=== PATIENT | female | born 1950 | race African-American/Black ===

== ENCOUNTER 2017-03-21 19:22 | Inpatient (IN) | payer BC ==
--- NOTE | ~2017-03-21 | HP ---
History And Physical [place] [id number] [place]. [address] NAME: NICOLETTE BURNS : 48 STATUS : ADM IN [facility]#: [id number] AGE: 66 ADM/REG DATE : 03/22/17 MR#: [id number] REPORT SERV DATE: 03/22/17 DICTATED BY: IRINA CHOW DATE: 03/22/17 REPORT STATUS : Draft TRANSCRIBED BY: MODL DATE: 03/22/17 DATE OF ADMISSION: 03/22/2017 POINT OF ENTRY: [facility] Emergency Department. PRIMARY [employer] OPERATOR: Dr. Arriaga. CHIEF COMPLAINT: Leukocytosis and history of hidradenitis suppurativa. HISTORY OF PRESENT ILLNESS: Ms. Burns is a 66-year-old female with history of hidradenitis suppurativa, zbx-iylnyah-lvcnjyttf diabetes mellitus type 2, hypertension, hyperlipidemia, who presents to the emergency department today with reports of continued purulent drainage from her hidradenitis suppurativa with elevated white count. The patient states that she has been on a combination of clindamycin and rifampin since the end of January to treat her hidradenitis in the setting of an elevated white count of approximately 19,000. In anticipation of plans for outpatient incision and debridement by Dr. Arriaga, he added on Bactrim Double Strength b.i.d. about two weeks ago. She has been taking all three antibiotics for the past two weeks. She was seen in clinic by Dr. Pierce on the , the labs were drawn, and she had a white count of 20,000, and she was subsequently referred to the emergency department for further evaluation. Of note, the patient denies any fevers, night sweats, chills. She does continue to report a very large amount of purulent drainage from her hidradenitis located primarily in the inguinal and perineal region. Initial evaluation in the emergency department was notable for a heart rate of 103. She is afebrile. White count here is 19,100, sugars 356. She was placed on IV vancomycin and admitted to the Hospitalist Service. REVIEW OF SYSTEMS: Comprehensive review of systems otherwise negative unless listed in history of present illness. PREVIOUS MEDICAL HISTORY: 1. Owk-iymvruv-ysgediiba diabetes mellitus type 2. Hemoglobin A1c of 9.6. 2. Hidradenitis suppurativa. 3. Hypertension. 4. Hyperlipidemia. 5. Diabetic neuropathy. 6. History of right septic knee arthritis. 7. History of left third toe osteomyelitis, status post amputation. SURGICAL HISTORY: 1. Abdominal hysterectomy. 2. Right carpal tunnel. 3. Appendectomy. History And Physical [address] [address] NAME: NICOLETTE BURNS : [birth year] STATUS : ADM IN [facility]#: [id number] AGE: 66 ADM/REG DATE : 03/22/17 MR#: [id number] REPORT SERV DATE: 03/22/17 DICTATED BY: IRINA CHOW DATE: 03/22/17 REPORT STATUS : Draft TRANSCRIBED BY: HERMAN DATE: 03/22/17 4. Tonsillectomy. 5. Tubal ligation. 6. Left third toe amputation. ALLERGIES: SHELLFISH. HOME MEDICATIONS: 1. Amlodipine and benazepril one tab daily. 2. Clindamycin 300 mg t.i.d. 3. Gabapentin 100 mg daily p.r.n. 4. Glipizide 5 mg daily. 5. Naproxen 440 mg daily. 6. Rifampin 300 mg t.i.d. 7. Janumet 50-1000 one tab daily. 8. Bactrim DS one tab b.i.d. SOCIAL HISTORY: Denies any tobacco, alcohol, or illicits. FAMILY HISTORY: Mother with breast cancer. Father with history of stroke. Siblings with diabetes. LABS AND IMAGIN. White count 19.1, hemoglobin is 8.5, hematocrit is 27.7, and platelet count is 489. 2. Sodium is 133, potassium 4.7, chloride 100, carbon dioxide 25, BUN 19, creatinine 0.88, glucose is 356, calcium is 9.2, protein is 8.5, albumin 2.4, bilirubin is 0.3, ALT is 18, AST 12, and alkaline phosphatase is 110. 3. Urinalysis is pending at the time of dictation. 4. Chest x-ray, pending at the time of dictation. PHYSICAL EXAMINATION: VITAL SIGNS: Temperature is 98.2 degrees Fahrenheit, pulse is 103, respirations 18, saturating 98% on room air, and blood pressure 145/66. On recheck, blood pressure now 153/55, pulse of 90. GENERAL: The patient is awake, alert, in no acute distress, resting comfortably in bed. She is a well-developed, well-nourished, elderly female. Daughter is at bedside. HEENT: Atraumatic and normocephalic. Moist mucous membranes. Pupils equal, round, reactive to light and accommodation. Extraocular eye movements intact. No scleral icterus. NECK: No jugular venous distention. No carotid bruits. CARDIAC: Regular rate and rhythm. No murmurs or gallops. Normal S1, S2. LUNGS: Clear to auscultation bilaterally. No wheezes, rhonchi, or crackles. ABDOMEN: Soft, nontender, nondistended. Good bowel sounds. No rebound, guarding, or rigidity. : The patient has areas of hidradenitis suppurativa primarily in the area of the mons pubis as well as bilateral inguinal region with evidence of purulent drainage on close and direct inspection of inguinal and perineum. I do not appreciate any areas of obvious necrosis or gangrene. There is no palpable fluctuance or fluid collections or subcutaneous gas. History And Physical [address] [address] NAME: NICOLETTE BURNS : [birth year] STATUS : ADM IN [facility]#: [id number] AGE: 66 ADM/REG DATE : 03/22/17 MR#: [id number] REPORT SERV DATE: 03/22/17 DICTATED BY: IRINA CHOW DATE: 03/22/17 REPORT STATUS : Draft TRANSCRIBED BY: HERMAN DATE: 03/22/17 SKIN: Warm and dry except for noted above. PSYCH: Affect appropriate. NEURO: Alert and oriented x3. Cranial nerves 2 through 12 grossly intact. Speech is normal. Gait not assessed. ASSESSMENT: Ms. Burns is a 66-year-old female who presents with persistent leukocytosis despite aggressive triple antibiotic therapy for her hidradenitis suppurativa. PROBLEM LIST: 1. Hidradenitis suppurativa. 2. Persistent leukocytosis. 3. Microcytic anemia. 4. Uncontrolled tyl-syjnrtv-bveyuigru diabetes type 2 with hyperglycemia. 5. Hypertension. PLAN: 1. Hidradenitis suppurativa with persistent leukocytosis. We will place the patient on IV Merrem and vancomycin as she has previous culture results dating back about five or seven years with a history of ESBL E. coli as well as Enterococcus faecalis. My suspicion for necrotizing soft tissue infection such as Michaela gangrene is low at this time. However, we will check a lactic acid level and a CPK. We will also empirically continue oral clindamycin at least overnight. Of note, her leukocytosis has been persistent for now over the past two months despite antibiotic therapy and she shows no signs of toxicity and vital signs are stable. We will consult Infectious Diseases as well as Dr. Curtis of General Surgery, who has known the patient in the past to assist with management of the patient's hidradenitis suppurativa. We will leave to the specialists and assuming primary attending in the morning whether or not Dermatology need to be involved as an inpatient. 2. Persistent leukocytosis likely secondary to hidradenitis suppurativa with persistent leukocytosis given history, but we will check urinalysis, chest x-ray, as well as a set of blood cultures, also obtaining wound cultures. 3. Uncontrolled eub-gfkvcom-ndwfisqul diabetes mellitus 2 with hyperglycemia. The patient admittedly is noncompliant with a lot of her medications secondary to financial reasons. We will give the patient some IV insulin here as well as IV fluids to get her sugar down. Place on level 3 insulin sliding scale and consult Diabetes Education for assistance. 4. Microcytic anemia. Checking iron studies as well as an occult stool. 5. DVT prophylaxis. Lovenox subcu. CODE STATUS: The patient wished to be full code. LISBETH/HERMAN Irina Chow MD History And Physical [address] [address] NAME: NICOLETTE BURNS : [birth year] STATUS : ADM IN [facility]#: [id number] AGE: 66 ADM/REG DATE : 03/22/17 MR#: [id number] REPORT SERV DATE: 03/22/17 DICTATED BY: IRINA CHOW DATE: 03/22/17 REPORT STATUS : Draft TRANSCRIBED BY: HERMAN DATE: 03/22/17 / [id number] CC: MD Emily Santos II
--- NOTE | ~2017-03-21 | DS ---
Discharge Summary [facility] [address] [place]. [address] NAME: NICOLETTE LOPEZ : 48 STATUS : DIS IN PAT#: [id number] AGE: 66 ADM/REG DATE : 03/22/17 MR#: [id number] REPORT SERV DATE: 03/24/17 DICTATED BY: IRINA JOY II DATE: 03/23/17 REPORT STATUS : Draft TRANSCRIBED BY: MODL DATE: 03/23/17 ADMISSION DATE: 03/22/2017 DISCHARGE DATE: 03/23/2017 DISCHARGE DIAGNOSES: 1. Chronic hidradenitis suppurativa. 2. Chronic leukocytosis. 3. Chronic microcytic anemia. 4. Uncontrolled uxp-twhprcz-jjdhhpksm diabetes mellitus type 2 with hyperglycemia. 5. Hypertension. CONSULTS: Dr. Pettit with Infectious Disease and Dr. Curtis with Surgery. BRIEF HISTORY OF PRESENT ILLNESS: The patient is a 66-year-old female with the above history, who presented to [facility] due to leukocytosis in the setting of chronic hidradenitis suppurativa with active drainage. For detailed history and physical examination, please see Dr. Mejia's note from 03/22/2017. HOSPITAL COURSE: On admission, the patient was noted to have some purulent drainage from her groin, where she has had chronic hidradenitis suppurativa. There was no erythema or evidence of acute cellulitis. She was initially placed on vancomycin and meropenem on admission given her white blood cell count of 19. She does have evidence for chronic leukocytosis dating back one or two years in our system. Dr. Pettit and Dr. Curtis were consulted and Dr. Curtis did not think there was any acute need for surgical intervention or drainage. Dr. Pettit was discontinuing her IV antibiotics as he did not think she had an acute infection and her leukocytosis was chronic and her hidradenitis suppurativa was likely managed from a microbial standpoint sufficiently with her current oral antibiotic regimen. He recommended considering a possible disease modifying drug in the future, however, clearly deferring to her aerodynamicist whom she will follow up with this month on the . At this point, her disease does not appear to be acutely inflamed and will be discharged with her home regimen at this point. In regard to her uncontrolled diabetes, her blood sugar has been in the 200s and she noted it has been in the 100s to 200s at home for a while. At this point, she may benefit from a long-acting insulin and has been started on Levemir. Her oral home regimen was discontinued on admission, and she was placed on sliding scale insulin. She was still in the upper 100s to 200s on a sliding scale and was started on 20 units of Levemir. This morning, her blood sugar was 110. Given I will be continuing her Janumet, we will lower her Levemir to 12 units until she establishes compliance with it and is able to monitor her blood sugar adequately. We will set her up with home health and follow up with her PCP, Dr. Pierce in one to two weeks. DISCHARGE MEDICATIONS: 1. Lotrel 5/40 mg p.o. daily. 2. Cleocin 300 mg p.o. t.i.d. 3. Levemir 12 units subcutaneously q.h.s. Discharge Summary [address] [address] NAME: NICOLETTE LOPEZ : 48 STATUS : DIS IN PAT#: [id number] AGE: 66 ADM/REG DATE : 03/22/17 MR#: [id number] REPORT SERV DATE: 03/24/17 DICTATED BY: IRINA JOY II DATE: 03/23/17 REPORT STATUS : Draft TRANSCRIBED BY: HERMAN DATE: 03/23/17 4. Rifampin 300 mg p.o. t.i.d. 5. Naproxen p.r.n. 6. Bactrim one tablet p.o. b.i.d. 7. Janumet one tablet p.o. daily. 8. Neurontin 100 mg p.o. daily p.r.n. pain. DISCHARGE INSTRUCTIONS: The patient will follow up with Dr. Pierce in one to two weeks. She will also follow up with her aerodynamicist at the end of the month as scheduled. DICTATED BY: MD VERONICA Santos II/HERMAN Irina Joy II, MD / [id number] CC: MD VALENTINO Santos II, MICHALLE B
--- NOTE | ~2017-03-21 | CN ---
Consultation Report [facility] [address] [place]. [address] NAME: NICOLETTE LOPEZ : 48 STATUS : ADM IN PAT#: [id number] AGE: 66 ADM/REG DATE : 03/22/17 MR#: [id number] REPORT SERV DATE: 03/23/17 DICTATED BY: KORY PETTIT DATE: 03/23/17 REPORT STATUS : Draft TRANSCRIBED BY: MODL DATE: 03/23/17 INFECTIOUS DISEASE CONSULTATION DATE OF CONSULTATION: 03/23/2017 REASON FOR CONSULTATION: Hidradenitis suppurativa. 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 The patient has been followed by Dr. Arriaga of Dermatology for her hidradenitis. She tells me she has been on clindamycin and rifampin for a few months, and about 10 days ago, Bactrim was added to this regimen. On 03/20/2017, she had some lab work drawn and her white blood cell count returned at 20,000 and she was told to go to the emergency department because there was concern about sepsis. However, the patient has had a rather chronic leukocytosis for the past year on reviewing her labs from [facility]. Her white blood cell count has been in the 15,000 to 20,000 range. The patient denies any recent fevers, shaking chills, or severe night sweats. She does have persistent pain in area of her hidradenitis in her perineum, but this is not especially worse. She also has ongoing drainage issues, which are problematic, but again notes markedly changed. The patient was admitted and because of some distant culture results showing ESBL E coli, was started on vancomycin and meropenem. On admission, she was afebrile and has remained so. The patient tells me that her production officer has discussed other medications for the hidradenitis with her including possibly Humira and apparently also retinoic acid therapy, but she has been worried about side affects. PAST MEDICAL HISTORY: In addition to the above is notable for diabetes, hypertension, hyperlipidemia, abdominal hysterectomy, appendectomy, tonsillectomy, tubal ligation, and right carpal tunnel surgery. ALLERGIES: SHELLFISH. PRESENT OUTPATIENT MEDICATIONS: Include clindamycin 300 mg p.o. t.i.d., rifampin 300 mg p.o. t.i.d., Lotrel, Neurontin, Glucotrol, Aleve, Janumet, and Bactrim b.i.d. SOCIAL HISTORY: Nonsmoker, nondrinker. FAMILY HISTORY: Noncontributory. REVIEW OF SYSTEMS: Otherwise negative. No nausea, vomiting, or diarrhea with these antibiotics. PHYSICAL EXAMINATION: GENERAL: The patient is alert, pleasant, in no acute distress. VITAL SIGNS: She is afebrile. Blood pressure 136/61, pulse 76, and respiratory rate 14. Consultation Report [address] [place]. [address] NAME: NICOLETTE LOPEZ : 48 STATUS : ADM IN [facility]#: [id number] AGE: 66 ADM/REG DATE : 03/22/17 MR#: [id number] REPORT SERV DATE: 03/23/17 DICTATED BY: KORY PETTIT DATE: 03/23/17 REPORT STATUS : Draft TRANSCRIBED BY: HERMAN DATE: 03/23/17 HEAD AND NECK: Shows clear oral cavity. LUNGS: Clear to auscultation anteriorly. CARDIAC: Regular rate and rhythm without murmur, gallop, or rub. ABDOMEN: Soft, nontender. Examination of her perineum shows typical changes of chronic hidradenitis. There is no surrounding cellulitis. There are some areas with some drainage, but these are not marked. EXTREMITIES: Without significant edema. She has peripheral IV without phlebitis. LABORATORY STUDIES: White blood cell count on 03/21/2017 is 19.1, on 03/22/2017 is 15.3, hemoglobin 7.7 (she does have chronic anemia), platelets 429, normal differential. Creatinine is 0.62. Albumin 2.4. Liver function tests are normal. Her urinalysis on admission showed moderate leukocyte esterase, 50 white blood cells, but cultures growing mixed gram-positive and gram-negative organisms. Admission blood cultures are negative. IMPRESSION: I do not see strong evidence that the patient has severe flare of secondary infection complicating her chronic hidradenitis. The leukocytosis is chronic. She has no fevers, chills, sweats, or other signs or symptoms of severe infection. I do not think she has a true urinary tract infection. PLAN: 1. I will continue the oral antibiotic regimen that her production officer has her on with the clindamycin, rifampin, and Bactrim. 2. I have encouraged the patient to discuss further with her production officer for the possibility of taking a disease modifying medication, understanding that she needs to fully appreciate the potential side effects. However, I think this offers her a much better chance that getting some improvement in her chronic hidradenitis symptoms and certainly I think this is more likely to help her then more aggressive antibiotic therapy. The patient's main problem with her hidradenitis is pain which is quite bothersome for her, along with the episodic drainage. KRISTEN/MODTerri Kory Pettit M.D. / [id number] CC: MD VALENTINO Santos II, MICHALLE B
--- NOTE | ~2017-03-21 | CN ---
Consultation Report [address] [place]. [address] NAME: NICOLETTE LOPEZ : 48 STATUS : ADM IN PAT#: [id number] AGE: 66 ADM/REG DATE : 03/22/17 MR#: [id number] REPORT SERV DATE: 03/22/17 DICTATED BY: ORI PERKINS DATE: 03/22/17 REPORT STATUS : Draft TRANSCRIBED BY: MODL DATE: 03/22/17 SURGICAL CONSULTATION DATE OF CONSULTATION: PRIMARY DIRECTOR PROFESSIONAL SERVICES: Dr. Arriaga. REASON FOR CONSULTATION: Left perineal hidradenitis. HISTORY OF PRESENT ILLNESS: This pleasant 66-year-old female, presents with a history of chronic hidradenitis in the bilateral perineum. She has some purulent drainage in the left inner thigh without redness, swelling, or fluctuance. There is no bulla or crepitance or need for surgical drainage. She has diabetes mellitus type 2, hypertension, and hyperlipidemia. She had an elevated white blood cell count and has been on suppressive antibiotic therapy prior to her admission. I was asked to see the patient in consultation. She had a blood sugar of 356 upon presentation with a heart rate of 103. PAST MEDICAL HISTORY: 1. Left perineal hidradenitis suppurativa with systemic inflammatory response syndrome. 2. Uncontrolled diabetes mellitus type 2. 3. Hypertension. 4. Hyperlipidemia. 5. Diabetic neuropathy. PAST SURGICAL HISTORY: Hysterectomy, right carpal tunnel surgery, appendectomy and lower extremity amputation of the left third toe. ALLERGIES: SHELLFISH. MEDICATIONS: Please see hospital chart. SOCIAL HISTORY: The patient denies alcohol, tobacco, or illicit drug usage. FAMILY HISTORY: Positive for breast cancer, stroke, and diabetes. LABORATORY DATA: White blood cell count 19,100. PHYSICAL EXAMINATION: General: Well-developed female, in no apparent distress. NECK: Supple. No adenopathy. CARDIOVASCULAR: Regular rate and rhythm without murmur. RESPIRATORY: Clear to auscultation. ABDOMEN: Soft, nondistended, and nontender. EXTREMITIES: The patient has hidradenitis in bilateral perineum with purulent drainage into Consultation Report [address] [place]. [address] NAME: NICOLETTE LOPEZ : 48 STATUS : ADM IN PAT#: [id number] AGE: 66 ADM/REG DATE : 03/22/17 MR#: [id number] REPORT SERV DATE: 03/22/17 DICTATED BY: ORI PERKINS DATE: 03/22/17 REPORT STATUS : Draft TRANSCRIBED BY: HERMAN DATE: 03/22/17 left deep perineum without any palpable fluctuance, redness, bulla, or crepitance. ASSESSMENT: 1. Hidradenitis suppurativa, left perineum, with systemic inflammatory response syndrome. 2. Uncontrolled diabetes mellitus type 2. 3. Hypertension. 4. Hyperlipidemia. 5. Microcytic anemia. PLAN: I agree with therapy with consultation of Infectious Disease. There is no operative debridement needed at this time. I recommend continued medical therapy and follow up with Dermatology. SINDHU/HERMAN Ori Perkins M.D. / [id number] CC: MD VALENTINO Santos II, MICHALLE B
[~2017-03-21 19:22] MED LIST: ALEVE220 MG PO; DIABET2.5 PO; DIABETA5 PO; DSS PO; GLUCOPHAGE1000 MG PO; HYDROCHLOROT25 MG PO; INDERIDE PO; JANUMET1 TA1 PO; JANUVIA100 MG PO; K500 PO; LOTREL1 CA3 PO; LOTREL1 CA4 PO; MIRALAXPKT PO; NEUR300 PO; PEP20 PO; T PO; ZOCOR10 PO; ZOCOR20 PO; ZOCOR40 PO
[2017-03-21 20:03] LABS: BASOPHILS 0.3 %; BASOPHILS ABSOLUTE 0.05 10/3/uL (0.0-0.16); EOSINOPHILS 0.7 %; EOSINOPHILS ABSOLUTE 0.13 10/3/uL (0.0-0.53); ER CBC TAT 0 Hrs 07 Mins; HEMOGLOBIN 8.5 g/dL (12.0-16.0); IMMATURE GRANULOCYTES 0.5 %; IMMATURE GRANULOCYTES ABSOLUTE 0.09 10/3/uL (0.0-0.11); LYMPHOCYTES 14.7 %; LYMPHOCYTES ABSOLUTE 2.81 10/3/uL (0.67-4.30); MEAN PLATELET VOLUME 9.5 fL (9.2-13.0); MONOCYTES 3.3 %; MONOCYTES ABSOLUTE 0.63 10/3/uL (0.21-1.20); NEUTROPHILS 80.5 %; NEUTROPHILS ABSOLUTE 15.42 10/3/uL (2.02-8.40); PLATELET COUNT 489 10/3/uL (150-400); WHITE BLOOD CELLS 19.1 10/3/uL (4.5-10.5)
[2017-03-21 20:05] LABS: HEMATOCRIT 27.7 % (36.0-48.0); MANUAL DIFF NO %; MEAN CORPUS HGB CONC 30.7 g/dL (32.0-36.0); MEAN CORPUSCULAR HEMOGLOB 20.7 pg (26.0-34.0); MEAN CORPUSCULAR VOLUME 67.6 fL (80-100); RBC DISTRIBUTION WIDTH 22.7 % (12.0-16.0)
[2017-03-21 20:20] LABS: A/G RATIO 0.4 (0.7-1.9); ALBUMIN 2.4 G/DL (3.5-5.0); CALCIUM, SERUM 9.2 MG/DL (8.5-10.4); CHLORIDE, SERUM 100 MMOL/L (96-112); CO2 (CARBON DIOXIDE) 25 MMOL/L (24-34); CREATININE 0.88 MG/DL (0.55-1.02); GFR AFRICAN AMERICAN 79 ML/MIN (>=60); GFR NON AFRICAN AMERICAN 68 ML/MIN (>=60); GLOBULIN 6.1 G/DL (2.5-4.1); SGOT(AST) 12 U/L (5-40); SGPT(ALT) 18 U/L (5-65); SODIUM, SERUM 133 MMOL/L (135-148); TOTAL BILIRUBIN 0.3 MG/DL (0-1.2); TOTAL PROTEIN 8.5 G/DL (6.0-8.5)
[2017-03-21 20:22] LABS: ALKALINE PHOSPHATASE 110 U/L (45-117); BUN (BLOOD UREA NITROGEN) 19 MG/DL (6-23); GLUCOSE, SERUM 356 MG/DL (60-99); POTASSIUM, SERUM 4.7 MMOL/L (3.5-5.3)
[2017-03-21 20:24] LABS: HYPOCHROMIA 1+ (3-10/OIF) (0-2/OIF); PLATELET ESTIMATE SLT INC (ADEQUATE)
[2017-03-22] MEDS ORDERED: LOTREL1 CA3 PO (00:23)
[2017-03-22] MEDS ORDERED: GLUCOTROL5 PO (00:23)
[2017-03-22] MEDS ORDERED: RIFADIN 300 MG300 MG PO (00:24)
[2017-03-22] MEDS ORDERED: CLEOCIN300 MG PO (00:24)
[2017-03-22] MEDS ORDERED: ALEVE220 MG PO (00:25)
[2017-03-22] MEDS ORDERED: BACDS PO (00:26)
[2017-03-22] MEDS ORDERED: JANUMET1 TA1 PO (00:27)
[2017-03-22] MEDS ORDERED: NEUR100 PO (00:28)
[2017-03-22 00:52] LABS: ASCORBIC ACID (UR NOT ORDER) NEG (NEG); BILIRUBIN, URINE NEGATIVE (NEG); ER URINALYSIS TAT 0 Hrs 00 Mins; KETONE, URINE NEGATIVE (NEG); LEUKOCYTE ESTERASE(NOT OR MOD (NEG); NITRITE (URINE) NEG (NEG); WBC (NOT ORDERED) (RFLEX) 50 (0-5)
[2017-03-22 01:43] LABS: CPK 45 U/L (0-200)
[2017-03-22 01:44] LABS: LACTATE 2.8 MMOL/L (0.3-2.4)
[2017-03-22 02:02] LABS: PROCALCITONIN <0.05 ng/mL (<0.5)
[2017-03-22 06:14] LABS: BASOPHILS 0.2 %; BASOPHILS ABSOLUTE 0.03 10/3/uL (0.0-0.16); EOSINOPHILS ABSOLUTE 0.16 10/3/uL (0.0-0.53); HEMOGLOBIN 7.7 g/dL (12.0-16.0); IMMATURE GRANULOCYTES 0.4 %; IMMATURE GRANULOCYTES ABSOLUTE 0.06 10/3/uL (0.0-0.11); LYMPHOCYTES 16.1 %; LYMPHOCYTES ABSOLUTE 2.46 10/3/uL (0.67-4.30); MEAN CORPUS HGB CONC 30.8 g/dL (32.0-36.0); MEAN CORPUSCULAR HEMOGLOB 20.9 pg (26.0-34.0); MEAN CORPUSCULAR VOLUME 67.9 fL (80-100); MEAN PLATELET VOLUME 9.2 fL (9.2-13.0); MONOCYTES 5.5 %; MONOCYTES ABSOLUTE 0.84 10/3/uL (0.21-1.20); NEUTROPHILS 76.8 %; NEUTROPHILS ABSOLUTE 11.71 10/3/uL (2.02-8.40); PLATELET COUNT 429 10/3/uL (150-400); RBC DISTRIBUTION WIDTH 22.6 % (12.0-16.0); RED CELL COUNT 3.68 10/6/uL (4.0-5.6); WHITE BLOOD CELLS 15.3 10/3/uL (4.5-10.5)
[2017-03-22 06:16] LABS: MANUAL DIFF NO %
[2017-03-22 06:35] LABS: PLATELET ESTIMATE ADQ (ADEQUATE)
[2017-03-22 06:36] LABS: POIKILOCYTOSIS 1+ (5-10/OIF) (0-5/OIF); POLYCHROMASIA 1+ (2-5/OIF) (0-1/OIF)
[2017-03-22 06:37] LABS: HYPOCHROMIA 1+ (3-10/OIF) (0-2/OIF)
[2017-03-22 06:41] LABS: BUN (BLOOD UREA NITROGEN) 16 MG/DL (6-23); CHLORIDE, SERUM 104 MMOL/L (96-112); CK-MB 0.6 NG/ML; CO2 (CARBON DIOXIDE) 24 MMOL/L (24-34); CPK 46 U/L (0-200); CREATININE 0.66 MG/DL (0.55-1.02); FERRITIN 123 NG/ML (8-252); GFR AFRICAN AMERICAN 106 ML/MIN (>=60); GFR NON AFRICAN AMERICAN 91 ML/MIN (>=60); GLUCOSE, SERUM 190 MG/DL (60-99); IRON BINDING CAPACITY 158 MCG/DL (225-410); IRON, SERUM 18 MCG/DL (35-150); POTASSIUM, SERUM 4.1 MMOL/L (3.5-5.3); SODIUM, SERUM 136 MMOL/L (135-148)
[2017-03-22 07:26] LABS: PROCALCITONIN 0.06 ng/mL (<0.5)
[2017-03-23 06:13] LABS: BUN (BLOOD UREA NITROGEN) 13 MG/DL (6-23); CALCIUM, SERUM 8.8 MG/DL (8.5-10.4); CHLORIDE, SERUM 108 MMOL/L (96-112); CO2 (CARBON DIOXIDE) 24 MMOL/L (24-34); CREATININE 0.62 MG/DL (0.55-1.02); GFR AFRICAN AMERICAN 108 ML/MIN (>=60); GFR NON AFRICAN AMERICAN 93 ML/MIN (>=60); POTASSIUM, SERUM 4.1 MMOL/L (3.5-5.3); SODIUM, SERUM 137 MMOL/L (135-148)
[2017-03-23 06:15] LABS: GLUCOSE, SERUM 109 MG/DL (60-99)
[2017-03-23] MEDS ORDERED: LEVEMIR SC (14:47)
== END 2017-03-23 18:43 | disposition home health service (06) | DRG 607 ==
LOC: ER 19:22 → 7NO 03-22 01:10
PROVIDERS: Emergency Medicine; Internal Medicine; Internal Medicine Infectious Disease
DX: L73.2 Hidradenitis suppurativa (principal); E11.40 Type 2 diabetes mellitus with diabetic neuropathy, unspecified; D64.9 Anemia, unspecified; E11.65 Type 2 diabetes mellitus with hyperglycemia; I10 Essential (primary) hypertension; Z79.84 Long term (current) use of oral hypoglycemic drugs; Z90.710 Acquired absence of both cervix and uterus; Z98.51 Tubal ligation status; Z89.422 Acquired absence of other left toe(s); Z91.013 Allergy to seafood; D72.829 Elevated white blood cell count, unspecified
CPT/HCPCS: 71010; 80048; 80053; 81001; 82550; 82553; 82728; 82962; 83540; 83550; 83605; 84145; 85025; 87040; 87070; 87086; 87205; 96374; 96375; 99284; A9270-GY; J0690; J2185; J3370